=== PATIENT | female | born 1945 | race Caucasian/White ===

== ENCOUNTER 2019-09-01 20:57 | Inpatient (IN) | payer MEDICARE ==
[~2019-09-01] VITALS: Ht 152.4 cm; Wt 122.7 kg
--- NOTE | 2019-09-01 22:37 | NUR ---
PT RECIVED FROM VIA AMBULANCE STRETCHER. CALL LIGHT WITH IN REACH. WILL CONTINUE TO MONITOR
[2019-09-01 23:48] VITALS: BP 129/80
[2019-09-02] VITALS (14 sets, daily range): BP systolic 84–156; BP diastolic 50–86; BMI 61.6; BMI 61.5
--- NOTE | 2019-09-02 00:07 | NUR ---
PT HR ELEVATING TO 210'S. DR. CURRY NOTIFIED. PT IS DNR. CALL LIGHT WITH INR EACH
[2019-09-02] MEDS ORDERED: ROCALTROL0.25 MCG PO ×2 (00:30→01:30)
[2019-09-02] MEDS ORDERED: ELIQUIS2.5 MG PO (00:30)
[2019-09-02] MEDS ORDERED: GABAPENTIN100 MG PO (00:32)
[2019-09-02] MEDS ORDERED: K-DUR20 MEQ PO (00:33)
[2019-09-02] MEDS ORDERED: BUMEX2 MG PO (00:35)
[2019-09-02] MEDS ORDERED: WELLBUTRIN SR150 MG PO (00:35)
[2019-09-02] MEDS ORDERED: NUEDEXTA 20-101 EACH (00:43)
[2019-09-02] MEDS ORDERED: BAYER CHEWABLE81 MG PO (01:12)
[2019-09-02] MEDS ORDERED: FOLIC ACID0.8 MG PO (01:13)
[2019-09-02] MEDS ORDERED: FOLATE0.4 MG PO (01:13)
[2019-09-02] MEDS ORDERED: VIC-FORTE CAPSUL1 MG PO (01:15)
[2019-09-02] MEDS ORDERED: HYDROCODON-ACE1 EAC7 PO (01:15)
[2019-09-02] MEDS ORDERED: SENNA LAXATIVE8.6 MG PO (01:19)
[2019-09-02] MEDS ORDERED: VITAMIN B-12500 MCG PO (01:20)
[2019-09-02] MEDS ORDERED: VITAMIN D1000 UNI1 PO (01:20)
[2019-09-02] MEDS ORDERED: NUEDEXTA 20-101 EACH PO (01:25)
[2019-09-02] MEDS ORDERED: TRAZODONE HCL150 MG PO (01:29)
--- NOTE | 2019-09-02 01:41 | NUR ---
FRANCIE SOLIS APN, NOTIFIED OF CONSULT. ALSO, NOTIFIED THAT PATIENT HR > 200 AT TIMES. ORDERS GIVEN FOR CARDIAC CONSULT.
--- NOTE | 2019-09-02 02:26 | NUR ---
DR. SERRANO INVESTMENT ANALYST NOTIFIED OF PT ELEVATING HEART RATE. NEW ORDER FOR CARDIZEM DRIP 5MG/HR ORDERED. STARTING IV INFUSION. CALL LIGHT WITH IN REACH. WILL CONTINUE TO MONITOR
--- NOTE | 2019-09-02 05:40 | NUR ---
ATTEMPTED TO CALL FAMILY FOR VERBAL CONSENTS. NO ANSWER LEFT MESSAGE FOR FAMILY TO CALL BACK.
--- NOTE | 2019-09-02 06:27 | NUR ---
BATH DONE. PT EYES ARE FIXED. DOES RESPONED TO PAIN BY GRUNTING. PT IS UNABLE TO ANSWER ANY QUESTIONS. PT REPOSITIONED FOR COMFORT. CALL LIGHT WITH IN REACH. WILL CONTINUE TO MONITOR
[2019-09-02 08:04] LABS: BASOPHILS 0.3 % (0-2); EOSINOPHILS 1.5 % (0-7); HEMATOCRIT 31.2 % (36.0-48.0); HEMOGLOBIN 9.4 g/dL (12-16); IMMATURE GRANULOCYTES 0.3 % (0-5); LYMPHOCYTES 12.5 % (15-50); MCH 27.1 pg (26.0-34.0); MCHC 30.1 g/dL (31.0-37.0); MCV 89.9 fL (80.0-100.0); MEAN PLATELET VOLUME 12.1 fL (7.4-10.4); MONOCYTES 6.1 % (2-11); NEUTROPHILS 79.3 % (40-80); PLATELET COUNT 125 10x3/uL (130-400); RBC 3.47 10x6/uL (4.00-5.40); RDW 16.9 % (11.5-14.5)
[2019-09-02 08:10] LABS: APTT 42.6 SECONDS (22.8-39.4); INR 1.82 (0.85-1.17); PROTIME 20.8 SECONDS (11.6-15.0)
[2019-09-02 08:27] LABS: CALCIUM 8.5 mg/dL (8.5-10.1); CARBON DIOXIDE 22.3 mmol/L (21.0-32.0); CHLORIDE - SERUM 107 mmol/L (98-107); CKMB 7.1 U/L (0.0-3.6); CREATINE KINASE 272 UL (21-215); CREATININE - SERUM 5.5 mg/dL (0.6-1.3); GLUCOSE 75 mg/dL (74-106); MAGNESIUM - SERUM 2.8 mg/dL (1.8-2.4); PHOSPHOROUS 7.4 mg/dL (2.5-4.9); POTASSIUM - SERUM 5.3 mmol/L (3.5-5.1); SODIUM 141 mmol/L (136-145); eGFR NON AFRICAN AMERICAN 8 mL/min (90-120)
[2019-09-02 08:30] LABS: CALC OSMOLALITY 318 mosm/kg (275-300)
[2019-09-02 08:33] LABS: UREA NITROGEN 122 mg/dL (7-18)
--- NOTE | 2019-09-02 08:47 | NUR ---
SPOKE WITH MAGUI MEADOWS AND STATED TO HER PT'S TROPONIN IS 1.13. CALLED DR. CURRY'S OFFICE AND CELLPHONE AND COULD NOT GET THROUGH. SENT A TEXT TO DR. CURRY.
--- NOTE | 2019-09-02 09:35 | NUR ---
VS STBALE. PT'S EYES GLAZED AND WILL NOT LOOK AT NURSE. WHEN PLACING BP CUFF ON PT'S ARM SHE ARVIND ASKED PT IF SHE IS HURTING AND ARVIND "YES". ASKED PT WHERE AND SHE MUMBLED A WORD BUT WAS UNABLE TO UNDERSTAND WHAT SHE SAID AFTER ASKING HER TO REPEAT SEVERAL TIMES. [facility] ICU NURSE SOCK MENDER WANTED THIS NURSE TO CALL WITH VS AND THIS NURSE DID. SHE IS TO LOOK AT PUTTING PT IN THE UNIT. MAGUI MEADOWS IN ROOM AT THIS TIME AND STATES SHE IS FAN TO ORDER DIGOXIN. I VERBALIZED UNDERSTANDING. PT HAS ONLY 20CC IN RAMIREZ BAG. WILL TRY TO COLLECT BLOOD CULTURES AND UA. BED LOW. CL IN REACH. WILL CONTINUE TO MONITOR. PT TO GO TO SX TODAY. AWAITING COVID RESULTS.
--- NOTE | 2019-09-02 09:47 | NUR ---
CARDIZEM DRIP CHANGED TO 10ML/HR.
--- NOTE | 2019-09-02 10:24 | NUR ---
OVER THE PHONE CONSENTS FROM ALTAF LEE PT'S SISTER IN LAW WHO IS LISTED EMERGENCY CONTACT. JESSICA MONTOYA VERIFIED OVER THE PHONE ALONG WITH THIS NURSE.
--- NOTE | 2019-09-02 10:26 | NUR ---
TEXTED DR. CURRY THAT DNR FORM NEEDS SIGNED.
[2019-09-02 10:54] LABS: T4 THYROXIN - FREE 0.72 ng/dL (0.76-1.46); THYROID STIMULATING HORMONE 20.46 uIU/mL (0.36-3.74)
--- NOTE | 2019-09-02 11:51 | NUR ---
CALLED REPORT TO DAR MONTOYA IN ICU. PT TO GO TO ROOM 2313.
[2019-09-02 12:09] LABS: BACTERIA MANY /hpf (NEGATIVE); BILIRUBIN NEGATIVE (NEGATIVE); GLUCOSE NEGATIVE (NEGATIVE); KETONE NEGATIVE (NEGATIVE); NITRITE POSITIVE (NEGATIVE); RED CELLS - URINE >50 /hpf (0-5); SPECIFIC GRAVITY 1.005 (1.005-1.020); UROBILINOGEN NORMAL (NORMAL); WHITE CELLS - URINE >50 /hpf (NEGATIVE)
[2019-09-02 12:10] LABS: AMORPHOUS SEDIMENT <1+ /lpf (NONE SEEN)
--- NOTE | 2019-09-02 12:29 | NUR ---
PT TAKEN TO ICU VIA BED TO ROOM 2313.
--- NOTE | 2019-09-02 12:30 | NUR ---
TO ROOM 2313. PT AWAKE BUT DOES NOT ANSWER QUESTIONS OR FOLLOW COMMANDS. WILL CONTINUE TO MONITOR.
--- NOTE | 2019-09-02 13:28 | NUR ---
Spoke with [facility] concerning COVID19 test results pending. As of 1329 not resulted. Also spoke with Infection Control Nurse at [facility] who advised they will forward/call with results as soon as they are received. Advised Piter [place] in OR.
--- NOTE | 2019-09-02 14:00 | NUR ---
TO OR VIA BED.
--- NOTE | 2019-09-02 16:00 | NUR ---
CONSULT CALLED TO SALTY AT DR HERBERT OFFICE.
--- NOTE | 2019-09-02 16:00 | NUR ---
PLACED ON BIPAP AT 60 PERCENT. O2 SAT 90 PERCENT.
--- NOTE | 2019-09-02 19:37 | NUR ---
CARDIZEM OFF HR 55.
[2019-09-03] VITALS (24 sets, daily range): BP systolic 117–169; BP diastolic 65–95
[2019-09-03 06:51] LABS: BASOPHILS 0.1 % (0-2); EOSINOPHILS 0.1 % (0-7); HEMATOCRIT 33.8 % (36.0-48.0); HEMOGLOBIN 10.3 g/dL (12-16); IMMATURE GRANULOCYTES 0.7 % (0-5); LYMPHOCYTES 9.3 % (15-50); MCH 27.5 pg (26.0-34.0); MCHC 30.5 g/dL (31.0-37.0); MCV 90.4 fL (80.0-100.0); MEAN PLATELET VOLUME 12.7 fL (7.4-10.4); NEUTROPHILS 82.8 % (40-80); PLATELET COUNT 137 10x3/uL (130-400); RBC 3.74 10x6/uL (4.00-5.40); WBC 10.3 10x3/uL (4.8-10.8)
--- NOTE | 2019-09-03 08:41 | OP ---
PATIENT NAME: ABE HESS MEDICAL RECORD: [id number] :45 LOCATION:[facility] D.2313 ADMISSION DATE:09/01/19 SURGEON: THADDEUS CURRY MD DATE OF OPERATION: 09/02/2019 SURGEON: Thaddeus Curry MD ANESTHESIA: General anesthesia by Peyton Mitchell CRNA. DIAGNOSIS: Solitary left kidney with hydroureteronephrosis due to an 11-mm distal ureteral stone causing acute renal failure. PROCEDURES: Cystoscopy, left retrograde pyelogram, left ureteroscopy and stone extraction, left ureteral stent insertion 6-Sri Lankan x 24 cm with string attached SPECIMEN: Left ureteral stone. FINDINGS: There is urethral mesh graft erosion. The mesh was in the lumen and calcified. This is from a previous pubovaginal sling. In the bladder, there were single ureteral orifices bilaterally. No bladder tumors were seen. The stone is radiodense. SPECIMENS: Left ureteral stone. BLOOD LOSS: None. CLINICAL HISTORY: This is a 74-year-old female, who has a complicated medical history including multiple strokes. She is aphasic. She is unable to give any history. She also has a history of cardiac issues and issues with congestive heart failure and atrial fibrillation. She was sent from [facility] on an emergent basis. She has a solitary left kidney and she had acute renal failure due to a stone obstructing the left kidney. The stone was [address] She was transferred here on an emergent basis yesterday and today we are going to try to place a stent in. I obtained a KUB to try to determine the location of the stone, but it is not clear on the KUB where the stone may be located. She is already on IV antibiotics that she was transferred with and I did not give any further antibiotics. She had been tested in the Emergency Room at [facility] for Covid 19. However, the results of that testing are not yet available. This was after calling the state testing facility. Therefore, we are observing Covid precautions on this patient. DESCRIPTION OF PROCEDURE: The patient was given induction of general anesthesia in supine position. She was placed in the lithotomy position and prepped and draped. She had to have her Gallardo catheter removed. Then, her perineum was prepped and draped. A 21-Sri Lankan cystoscope was used. The scope had difficulty entering into the urethra. Finally, I managed to observe that I was actually hitting a pubovaginal sling that had eroded through the urethral wall and was in the lumen of the urethra. It had been sitting in the lumen for so long that it was calcified. Going into the bladder, lot of debris was found. I irrigated this out. The bladder low are inflamed due to the indwelling Gallardo catheter. Her urinalysis preoperatively also showed signs of urinary tract infection incidentally. No bladder tumors were seen. The left ureteral orifice was identified. A 5-Sri Lankan open-ended ureteral catheter was placed into the orifice and a retrograde pyelogram was performed. The stone was seen as a radio lucency around which the contrast migrated. It was in the distal ureter very close to OPERATIVE REPORT [id number] ABE HESS the ureteral orifice. Therefore, instead of just placing a stent, I decided to try to retrieve the stone and be rid of it. The Sensor wire was placed, past the stone up into the renal pelvis. The ureteral catheter was removed, leaving the wire in place. A 21-Sri Lankan ureteral dilation balloon was then used to dilate the left ureteral orifice. We then switched to the ureteroscope. The stone was identified. A 1.9-Sri Lankan 0-tip basket was placed around the stone and the stone was removed. We then switched the wire back into the cystoscope. A 6-Sri Lankan x 24 cm ureteral stent was placed, and once the stent was in correct position, the wire was withdrawn entirely. The distal end of stent was pushed into the bladder using a pusher. The bladder was then emptied through the cystoscope sheath. The scope was removed. The string on the distal end of the stent is maintained. It was taped to the suprapubic region with a small piece of Tegaderm. A new 16-Sri Lankan Gallardo catheter was inserted. At some future date, we will have to deal with the eroded mesh graft as it will be a source of ongoing infection. TRANSINT:[id number] Voice Confirmation ID: [id number] DOCUMENT ID: [id number] THADDEUS CURRY MD at 0841 CC: [id number] DICTATION DATE: 09/02/19 1534 RESEARCH CLERK: 09/02/19 4958 ADM IN [place] [id number] [place] [address]
[2019-09-03 09:25] LABS: ALBUMIN 2.5 g/dL (3.4-5.0); ANION GAP 23.5 mmol/L (8-16); BILIRUBIN - TOTAL 0.69 mg/dL (0.2-1.3); CALCIUM 7.8 mg/dL (8.5-10.1); CARBON DIOXIDE 18.5 mmol/L (21.0-32.0); CREATININE - SERUM 5.7 mg/dL (0.6-1.3); PHOSPHOROUS 7.1 mg/dL (2.5-4.9); PROTEIN - SERUM 6.1 g/dL (6.4-8.2)
[2019-09-03 09:32] LABS: DIGOXIN 3.08 ng/mL (0.90-2.00)
[2019-09-03 13:09] LABS: INR 1.4 (0.85-1.17)
--- NOTE | 2019-09-03 13:40 | NUR ---
Nutrition follow-up: Pt remains nonverbal at this time NPO for procedure Wt: 314# BIPAP in use RDN following.
--- NOTE | 2019-09-03 16:44 | NUR ---
CONTINUE TO BE IN AFIB HR 102. CARDIZEM AT 10 MG PER HOUR.
[2019-09-04] VITALS (31 sets, daily range): BP systolic 111–163; BP diastolic 56–85
--- NOTE | 2019-09-04 07:40 | NUR ---
LYING IN BED AWAKE AT THIS TIME. VSS. NO ACUTE DISTRESS NOTED. PT ABLE TO STATE NEEDS SUCH "I WANT A DRINK OF WATER," EXPLAINED TO PT THAT SHE WAS NPO AND COULD NOT HAVE A DRINK OF WATER AT THIS TIME, PT STATED "OKAY." PT NOTED CONFUSED, ABLE TO ONLY STATE NAME. REORIENTATION PROVIDED. TURNED Q2H, ORAL CARE PROVIDED Q2H. VSS. SINUS RHYTHM. WILL CONTINUE PLAN OF CARE.
--- NOTE | 2019-09-04 07:54 | NUR ---
ATTEMPTED TO CALL PTS EMERGENCY CONTACT, ROSA SOLITARIO, FOR CONSENT FOR LITHOTRIPSY TODAY, NO ANSWER RECIEVED, VOICEMAIL LEFT. WAITING FOR CALLBACK.
--- NOTE | 2019-09-04 09:04 | NUR ---
NO CALLBACK RECIEVED, CALLED EMERGENCY CONTACT AGAIN, NO ANSWER NOTED. WAITING FOR CALLBACK.
[2019-09-04 09:13] LABS: BASOPHILS 0.4 % (0-2); EOSINOPHILS 0 % (0-7); HEMATOCRIT 33.4 % (36.0-48.0); HEMOGLOBIN 10.5 g/dL (12-16); IMMATURE GRANULOCYTES 4.7 % (0-5); LYMPHOCYTES 9.6 % (15-50); MCH 27.2 pg (26.0-34.0); MCHC 31.4 g/dL (31.0-37.0); MEAN PLATELET VOLUME 11.7 fL (7.4-10.4); MONOCYTES 6.4 % (2-11); NEUTROPHILS 78.9 % (40-80); RBC 3.86 10x6/uL (4.00-5.40); RDW 16.3 % (11.5-14.5); WBC 11.8 10x3/uL (4.8-10.8)
[2019-09-04 09:14] LABS: MCV 86.5 fL (80.0-100.0); PLATELET COUNT 165 10x3/uL (130-400)
[2019-09-04 09:24] LABS: CALCIUM 8.5 mg/dL (8.5-10.1); CREATININE - SERUM 5.1 mg/dL (0.6-1.3); MAGNESIUM - SERUM 2.7 mg/dL (1.8-2.4)
[2019-09-04 09:27] LABS: PHOSPHOROUS 4.4 mg/dL (2.5-4.9)
[2019-09-04 09:29] LABS: ANION GAP 16.1 mmol/L (8-16); CARBON DIOXIDE 27.1 mmol/L (21.0-32.0); POTASSIUM - SERUM 4.2 mmol/L (3.5-5.1)
--- NOTE | 2019-09-04 10:39 | NUR ---
LYING IN BED AWAKE AT THIS TIME. VSS. NO ACUTE DISTRESS NOTED. PT TURNED Q2H, ORAL CARE PROVIDED Q2H. WILL CONTINUE PLAN OF CARE.
--- NOTE | 2019-09-04 11:59 | NUR ---
PER DR CURRY, CHANGE OUT RAMIREZ.
--- NOTE | 2019-09-04 12:46 | NUR ---
PT PLACED ON NC PER DR MENG ORDERS. OXYGEN SATURATION 99% ON 5L NC.
--- NOTE | 2019-09-04 14:02 | NUR ---
RAMIREZ REPLACED PER DR CURRY'S ORDERS. 16F WAS PLACED WHICH IS THE SAME SIZE RAMIREZ WHICH WAS JUST REMOVED. SALTY COLORED URINE FLOWING INTO CLOSED CONTAINER. PLACEMENT PERFORMED USING STERILE PROCEDURE. VSS. NO ACUTE DISTRESS NOTED. PT DENIES ANY NEEDS. WILL CONTINUE PLAN OF CARE.
--- NOTE | 2019-09-04 14:26 | NUR ---
PER SPEECH SWALLOW EVAL, KEEP PT NPO.
--- NOTE | 2019-09-04 15:48 | NUR ---
UP IN BED AWAKE AT THIS TIME. DENIES ANY NEEDS. VSS. CALL LIGHT IN REACH. BED ALARM ON. PT ABLE TO STATE NEEDS, ORAL CARE AND REPOSITIONING PROVIDED Q2H. WILL CONTINUE PLAN OF CARE.
--- NOTE | 2019-09-04 16:19 | NUR ---
TOTAL LINEN CHANGE PROVIDED AT THIS TO PLACE SLIDE PAD BENEATH PT. NO ACUTE DISTRESS NOTED. DR MENG NOTIFIED OF PTS SBP UP TO 150S, NO NEW ORDERS RECIEVED. PT TURNED Q2H, ORAL CARE PROVIDED Q2H. WILL CONTINUE PLAN OF CARE.
--- NOTE | 2019-09-04 18:34 | NUR ---
NO ACUTE DISTRESS NOTED AT THIS TIME. VSS. NO ACUTE DISTRESS NOTED. REPOSITIOING AND ORAL CARE PROVIDED Q2H. CALL LIGHT IN REACH. WILL CONTINUE PLAN OF CARE.
--- NOTE | 2019-09-04 19:00 | NUR ---
REPORT REC'D, ASSUMED PT CARE. ASSESSMEMT COMPLETED. PT AWAKE SCREAMING AND CRYING FOR WATER, PT ON STRICT NPO AT THIS TIME. UNABLE TO PASS SWALLOW EVAL TO DAY. REORIENTED WITHOUT SUCCESS, MOUTH CARE PROVIDED, LIPS BALM USED. PT STATED THAT FEELS BETTER. CONT AFIB ON MONITOR. PPP. CALL LIGHT IN REACH. CONT TO MONITOR.
--- NOTE | 2019-09-04 21:00 | NUR ---
PT REPOSITIONED FOR COMFORT. HOB UP, SIDE RAILS UP. CALL LIGHT IN REACH. NO FAMILY CALLED AT THIS TIME. CONT TO MONITOR.
--- NOTE | 2019-09-04 23:00 | NUR ---
REASSESSMENT COMPLETED. SEE FLOWSHEETS FOR ALL FINDINGS. PT AWAKE EASILY WITH VOICES. VSS. NO ACUTE CHANGES NOTED IN PT'S STATUS. REPOSITIONED FOR COMFORT. WEAGES IN USE FOR SUPPORT. HEELS ELEVATED. HOB UP. SIDE RAILS UP. CALL LIGHT IN REACH. CPOC.
[2019-09-05] VITALS (21 sets, daily range): BP systolic 142–169; BP diastolic 56–77
--- NOTE | 2019-09-05 01:00 | NUR ---
PT RESTING WITHOUT DISTRESS AT THIS TIME. VSS. NO NEEDS VOICES. CPOC.
--- NOTE | 2019-09-05 03:00 | NUR ---
REASSESSMENT COMPLETED PER FLOWSHEETS. PT AROUSES WITH VOICES, NO ACUTE CHANGES IN PTS STATUS NOTED. VSS. CPOC.
--- NOTE | 2019-09-05 05:00 | NUR ---
PT REPOSITIONED FOR COMFORT. MOUTH CARE DONE. PILLOWS IN USE FOR SUPPORT. HOB UP. RIGHT CALF DRESSING CHANGED. CPOC.
[2019-09-05 06:39] LABS: HEMATOCRIT 33.5 % (36.0-48.0); HEMOGLOBIN 10.3 g/dL (12-16); MCH 26.8 pg (26.0-34.0); MCHC 30.7 g/dL (31.0-37.0); MEAN PLATELET VOLUME 12.5 fL (7.4-10.4); PLATELET COUNT 140 10x3/uL (130-400); RBC 3.85 10x6/uL (4.00-5.40); RDW 16.6 % (11.5-14.5); WBC 11.2 10x3/uL (4.8-10.8)
[2019-09-05 06:44] LABS: ALBUMIN 2.5 g/dL (3.4-5.0); BILIRUBIN - TOTAL 0.53 mg/dL (0.2-1.3); CALCIUM 7.9 mg/dL (8.5-10.1); CARBON DIOXIDE 27.1 mmol/L (21.0-32.0); CREATININE - SERUM 4.2 mg/dL (0.6-1.3); MAGNESIUM - SERUM 2.6 mg/dL (1.8-2.4)
[2019-09-05 06:48] LABS: POTASSIUM - SERUM 5.1 mmol/L (3.5-5.1)
--- NOTE | 2019-09-05 07:29 | NUR ---
REPORT RECEIVED. ASSESSMENT COMPLETE PER FLOW SHEET. VSS. PT RESTING COMFORTABLY WILL CONTINUE TO MONITOR
--- NOTE | 2019-09-05 10:44 | NUR ---
Nutrition follow-up: Pt remains NPO Labs reviewed Recommend NGT placement and Suplena started @ 25 ml/hr with increase goal rate of 50 ml/hr. Flush tube with 75 ml H2O q [address] following.
[2019-09-05 11:26] LABS: LYMPHOCYTES 15 % (15-50); MONOCYTES 11 % (2-11); NEUTROPHILS 74 % (40-80); PLATELET ESTIMATE NORMAL
--- NOTE | 2019-09-05 13:27 | NUR ---
Right lower leg is red/excoriated. Bilateral lower legs edematous and discolored. Right heel and left heel have deep tissue injuries. Heels are being protected with heel protectors and floating. Wound care will monitor.
--- NOTE | 2019-09-05 15:00 | NUR ---
REASSESSMENT COMPLETE PER FLOW SHEET. VSS. PT RESTING COMFORTABLY WILL CONTINUE TO MONITOR
--- NOTE | 2019-09-05 15:15 | NUR ---
REASSESSMENT COMPLETE PER FLOW SHEET. VSS. PT RESTING COMFORTABLY WILL CONTINUE TO MONITOR
--- NOTE | 2019-09-05 19:00 | NUR ---
REPORT REC'D, ASSESSMENT COMPLETED. GARBLED SPEECH. UNABLE TO ANSWER QUESTIONS CORRECTLY. WEAK STRENGTH, LEFT SIDE > RIGHT SIDE. REPOSITIONED. F/C WITH SALTY OUTPUT.
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
--- NOTE | 2019-09-05 21:46 | MORECARE ---
CASE MANAGEMENT DISCHARGE SUMMARY PATIENT: ABE HESS UNIT: [id number] ADM DATE: 09/01/19 AGE: 74 : 45 SEX: F ROOM/BED: D.2308 AUTHOR: CYNTHIA,DOC PHYSICIAN: REFERRING PHYSICIAN: MARIA ELENA CURRY MD DATE OF SERVICE: 09/05/19 Discharge Plan Patient Name: ABE HESS Facility: [facility]:[place] : 1945 Planned Disposition: Nursing Facility [facility] Cert Anticipated Discharge Date: Discharge Date: Expected LOS: Initial Reviewer: [email or web address] Initial Review Date: 09/02/2019 Generated: 09/05/19 10:46 pm Comments DCP- Discharge Planning Updated by [email or web address]: Xiao Castro on 09/05/19 8:[address] Patient Name: ABE HESS Admission Status: Elective Accout number: [id number] Admission Date: 09-01-2019 : 1945 Admission Diagnosis:CALCULUS OF URETER Attending: RANDY CURRY Current LOS: 4 Anticipated DC Date: Planned Disposition: Nursing Facility [facility] Cert Primary Insurance: MEDICARE IP PART B ONLY Discharge Planning Comments: PATIENT IS A RESIDENT AT [facility] [phone]. [facility] COMPLETED PLANS TO RETURN THERE UPON DISCHARGE. CM FAXED UPDATE TO FACILITY. CM WILL CONTINUE TO FOLLOW AND ASSIST NEEDED WITH DISCHARGE PLANNING / NEEDS. Rehab Director Occupational Therapist: Xiao Castro DCPIA - Discharge Planning Initial Assessment Updated by [email or web address]: Xiao Castro on 09/05/19 9:38 pm * Is the patient Alert and Oriented? Yes * PCP [facility] * Pharmacy [facility] * Preadmission Environment [facility] * Facility Name [facility] * List name and contact numbers for known caregivers / representatives who currently or will assist patient after discharge: ROSA SOLITARIO - [phone] MOISÉS LOVE - [phone] * Verbal permission to speak to the caregivers and representatives has been obtained from the patient. Yes * Community resources currently utilized None * Additional services required to return to the preadmission environment? No * Can the patient safely return to the preadmission environment? Yes * Has this patient been hospitalized within the prior 30 days at any hospital? No Last DP export: 09/05/19 8:39 pm Patient Name: ABE HESS Page 00659 at 2146 All edits/amendments must be made on the electronic document DICTATION DATE: 09/05/192145 PERSONAL FITNESS TRAINER: LEONARDO 09/05/192145 RPT#: [id number] DC DATE: STATUS: ADM IN [facility] [address] [place] [address] END OF REPORT
--- NOTE | 2019-09-05 23:00 | NUR ---
RE-ASSESSMENT COMPLETED. NO CHANGES SINCE LAST ASSESSMENT
[2019-09-06] VITALS (23 sets, daily range): BP systolic 143–177; BP diastolic 56–78
--- NOTE | 2019-09-06 01:00 | NUR ---
REPOSITIONED. VSS. DENIES ANY NEEDS
--- NOTE | 2019-09-06 03:00 | NUR ---
RE-ASSESSMENT COMPLETED. NO CHANGES SINCE LAST ASSESSMENT. REPOSITIONED
--- NOTE | 2019-09-06 05:02 | NUR ---
CHG BATH GIVEN WITH COMPLETE LINEN CHANGE
--- NOTE | 2019-09-06 07:00 | NUR ---
AWAKE UNABLE TO UNDERSTAND SPEECH EXCEPT YES. OCC CAN UNDERSTAND A WORD OR TWO. SKIN WARM AND DRY. MONITOR SR. OXYGEN AT 4 LITERS NC. IV RIGHT UPPER ARM INFUSING WITH CARDIZEM 5 MG HOUR, D51/2NS AT 100 ML HOUR. RAMIREZ CATH PATENT. HEAD OF BED ELEVATED. BADGES ON LOWER LEGS DRY AND INTACT. LEGS VERY LARGE.
[2019-09-06 07:42] LABS: ANION GAP 15.2 mmol/L (8-16); CALCIUM 8.2 mg/dL (8.5-10.1); CARBON DIOXIDE 24.7 mmol/L (21.0-32.0); CREATININE - SERUM 3.4 mg/dL (0.6-1.3); MAGNESIUM - SERUM 2.4 mg/dL (1.8-2.4); PHOSPHOROUS 3.4 mg/dL (2.5-4.9)
--- NOTE | 2019-09-06 08:00 | NUR ---
FEED PUREED DIET. ATE WELL. ALL OF HER EGGS, HALF OF CREAM OF WHEAT. CHOKED ON COFFEE. HEAD OF BED ELEVATED 90 DEGREES. GOOD COUGH EFFORT
[2019-09-06 08:05] LABS: POTASSIUM - SERUM 3.9 mmol/L (3.5-5.1)
--- NOTE | 2019-09-06 10:00 | NUR ---
NO CHANGE IV PATENT.
--- NOTE | 2019-09-06 11:00 | NUR ---
3/4 CUP OF SHERBERT FEED TO PATIENT
--- NOTE | 2019-09-06 12:00 | NUR ---
PUREED DIET FEED TO PATIENT EAT 1/3 OF FOOD THEN STARTED COUGHING.
--- NOTE | 2019-09-06 13:00 | NUR ---
voss care done. no skin breakdown on coccyx. both heels purple. heel protectors in place. both heels bridged on pillows x 2. good cough tolerates repositioning poorly, screams when repositioned
[2019-09-06 13:33] LABS: HEMATOCRIT 34.9 % (36.0-48.0); HEMOGLOBIN 10.6 g/dL (12-16); LYMPHOCYTES 10.6 % (15-50); MCH 27.4 pg (26.0-34.0); MCHC 30.4 g/dL (31.0-37.0); MEAN PLATELET VOLUME 11.9 fL (7.4-10.4); NEUTROPHILS 82.4 % (40-80); PLATELET COUNT 158 10x3/uL (130-400); RBC 3.87 10x6/uL (4.00-5.40); RDW 16.5 % (11.5-14.5); WBC 11.8 10x3/uL (4.8-10.8)
--- NOTE | 2019-09-06 13:44 | NUR ---
HALF APPLE SAUCE TAKEN WITH MEDICATIONS. WASH CLOTHES PLACED IN CONTRACTED HANDS.
[2019-09-06 13:48] LABS: MCV 90.2 fL (80.0-100.0)
--- NOTE | 2019-09-06 15:00 | NUR ---
no changes. taking po fluids well. has to feed all fluids and drinks
--- NOTE | 2019-09-06 17:00 | NUR ---
feed pureed super tray. ate all of meat, and pudding. drinking water and soda. tolerated well no choking or coughing
--- NOTE | 2019-09-06 18:00 | NUR ---
back on bipap for short of breath per patient pulse ox 98%. phone in room called want to talk with him.
--- NOTE | 2019-09-06 18:00 | NUR ---
napping at intervals. no distress
--- NOTE | 2019-09-06 19:00 | NUR ---
ASSESSMENT COMPLETED. REPOSITIONED. GARBLED SPEECH, CLEAR AT TIMES. BREATHING ROOM AIR.
--- NOTE | 2019-09-06 21:00 | NUR ---
REPOSITIONED AND ORAL CARE PROVIDED.
--- NOTE | 2019-09-06 23:00 | NUR ---
RE-ASSESSMENT COMPLETED. NO CHANGES SINCE LAST ASSESSMENT
[2019-09-07] VITALS (24 sets, daily range): BP systolic 147–176; BP diastolic 46–85
--- NOTE | 2019-09-07 01:00 | NUR ---
REPOSITIONED AND ORAL CARE PROVIDED. VSS
--- NOTE | 2019-09-07 03:00 | NUR ---
REPOSITIONED. RE-ASSESSMENT COMPLETED. NO CHANGES SINCE LAST ASSESSMENT
--- NOTE | 2019-09-07 05:00 | NUR ---
REPOSITIONED AND ORAL CARE PROVIDED
--- NOTE | 2019-09-07 07:15 | NUR ---
AWAKE SPEECH GARBLED UNABLE TO UNDERSTAND PATIENT. MAKING EYE CONTACT AND TRYING TO TALK. SKIN WARM AND DRY. MONITOR SR. IV RIGHT UPPER ARM WITHOUT REDNESS OR SWELLING. INFUISNG WITH D51/2NS AT 100 ML HOUR. CARDIZEM GTT AT 5 MG. RAMIREZ CATH PATENT AND DRAINING CLEAR SALTY URINE. BOTH HEELS BRIDGED ON PILLOWS AND HEEL PROTECTORS IN PLACE. HEAD OF BED ELEVATED . REPOSITIONED FOR BREAKFAST. DRESSING ON RIGHT LEG DRY AND INTACT. CALL LIGHT WITHIN HANDS REACH. NO MOVEMENT RIGHT SIDE. MOVES LEFT ON REQUEST. LEFT HAND SQUEEZ STRONG
--- NOTE | 2019-09-07 08:00 | NUR ---
FEED BREAKFAST ATE 1/3 THEN STARTED COUGHING AND CHOKING ON THICKEN LIQUIDS
[2019-09-07 08:48] LABS: HEMATOCRIT 35.8 % (36.0-48.0); HEMOGLOBIN 10.7 g/dL (12-16); MCH 27.3 pg (26.0-34.0); MCHC 29.9 g/dL (31.0-37.0); MCV 91.3 fL (80.0-100.0); MEAN PLATELET VOLUME 12.4 fL (7.4-10.4); NEUTROPHILS 81.9 % (40-80); PLATELET COUNT 127 10x3/uL (130-400); RBC 3.92 10x6/uL (4.00-5.40); RDW 16.5 % (11.5-14.5); WBC 13.9 10x3/uL (4.8-10.8)
--- NOTE | 2019-09-07 08:54 | NUR ---
DRESSING RIGHT LEG REMOVED LARGE OPEN WOUND CLEAN WITH WOUND CLEANSER WET TO DRY DRESSING APPLIED. SOME YELLOW NOTED IN WOUND. ABD PAD APPLIED WRAPPED IN KERLIX PATIENT TOLERATED FAIR. HEELS STILL PURPLE LEFT MORE THAN RIGHT. HEEL PROTECTORS IN PLACE HEELS BRIDGED WITH PILLOWS X 2
[2019-09-07 09:10] LABS: ANION GAP 15.9 mmol/L (8-16); CALCIUM 7.6 mg/dL (8.5-10.1); POTASSIUM - SERUM 3.9 mmol/L (3.5-5.1)
--- NOTE | 2019-09-07 10:00 | NUR ---
NAPPING EYES CLOSED. RESP DEEP AND REGULAR NO DISTRESS.
--- NOTE | 2019-09-07 11:00 | NUR ---
REPOSITIONED ON BACK FOR LUNCH
--- NOTE | 2019-09-07 12:16 | NUR ---
feed lunch ate 50% did not want anymore. some coughing and choking at times. good cough reflex
--- NOTE | 2019-09-07 12:17 | NUR ---
crying out wants to go to bed. informed several times that she is in bed. dr. sharp here
--- NOTE | 2019-09-07 13:52 | NUR ---
repositioned sipping on honey consistent coka cola. napping at intervals no distress. bilateral heels bridge on pillows heel protectors in place. dressing on right lower leg dry and intact
--- NOTE | 2019-09-07 15:00 | NUR ---
repositioned. heels bridged on pillows. dressing dry and intact. monitor sr. drinking honey consistences cola.
--- NOTE | 2019-09-07 17:00 | NUR ---
repositioned. feed dinner pureed diet ate fair. minimal coughing. taking sips of thicken water.
--- NOTE | 2019-09-07 19:00 | NUR ---
REPORT RECEIVED AND CARE ASSUMED. RECEIVED PATIENT IN BED, SLEEPING. ROUSES EASILY. ORIENTED TO SELF ONLY. ASSESSMENT COMPLETED PER FLOW SHEET WITH NO ACUTE DISTRESS OBSERVED. MONITORS CONNECTED TO PATIENT WITH ALARMS SET. VSS. TURNED AND REPOSTIONED FOR COMFORT.
--- NOTE | 2019-09-07 21:00 | NUR ---
TURNED AND REPOSITIONED FOR COMFORT, SUSI WELL. VSS
--- NOTE | 2019-09-07 23:00 | NUR ---
REASSESSMENT COMPLETED PER FLOW SHEET WITH NO ACUTE DISTRESS OBSERVED. VSS. TURNED AND REPOSITIONED FOR COMFORT.
[2019-09-08] VITALS (10 sets, daily range): BP systolic 132–175; BP diastolic 41–68
--- NOTE | 2019-09-08 01:00 | NUR ---
RESTING QUIETLY. RESP EVEN AND UNLABORED. VSS. TURNED AND REPOSITIONED FOR COMFORT
--- NOTE | 2019-09-08 03:00 | NUR ---
AWAKE AND ALERT. TURNED AND REPOSITIONED. REASSESSMENT COMPLETED PER FLOW SHEET WITH NO ACUTE DISTRESS OBERVED. VSS.
[2019-09-08 03:41] LABS: ANION GAP 12.4 mmol/L (8-16); CALCIUM 8.1 mg/dL (8.5-10.1); CARBON DIOXIDE 25.1 mmol/L (21.0-32.0); CREATININE - SERUM 2.7 mg/dL (0.6-1.3); POTASSIUM - SERUM 3.5 mmol/L (3.5-5.1)
[2019-09-08 03:43] LABS: HEMATOCRIT 34.3 % (36.0-48.0); HEMOGLOBIN 10.3 g/dL (12-16); LYMPHOCYTES 7.1 % (15-50); MCH 27.1 pg (26.0-34.0); MCV 90.3 fL (80.0-100.0); NEUTROPHILS 83.5 % (40-80); RDW 16.4 % (11.5-14.5); WBC 15.7 10x3/uL (4.8-10.8)
[2019-09-08 03:44] LABS: PLATELET COUNT 185 10x3/uL (130-400)
--- NOTE | 2019-09-08 05:00 | NUR ---
CHG BATH GIVEN. ORAL CARE GIVEN. TURNED AND REPOSITIONED. SUSI WELL. VSS
--- NOTE | 2019-09-08 09:17 | NUR ---
Nutrition follow-up: Diet: regular puree with honey thick liquids PO intake ~50% of most meals; nursing reports pt ate 100% of breakfast this morning. Labs reviewed Wt: 270# RDN following.
--- NOTE | 2019-09-08 11:19 | NUR ---
RECEIVED PT FROM LINDSAY ROSENTHAL IN ICU, PT IS ALERT AND ORIENTED TO SELF. PT VERY SWOLLEN IN BOTH UPPER AND LOWER EXTREMITIES, LEFT AND RIGHT ARMS ELEVATED WITH PILLOWS, WHEN TRYING TO ADJUST PILLOWS PT STATED SHE IS HURTING. IV IN RT UPPER ARM INTACT, NO SWELLING OR REDNESS SEEN AT SITE, RAMIREZ IN PLACE, TELEMETRY PLACED ON PT. NO S/SX OF DISTRESS, CL IN REACH, TURNED ON CARTOONS FOR PT. ASSUME PT CARE
--- NOTE | 2019-09-08 12:55 | NUR ---
ASSISTED PT WITH LUNCH, PT ATE 1/2 OF HER CHICKEN ABOUT 25% OF ZUCCHINI AND 3 BITES OF HER SOUP AND 3 TO 5 BITES OF DESSERT. PT DRANK HALF HER WATER THEN REQUESTED COKE, PT STATED SHE WAS FULL, NO OTHER NEEDS AT THIS TIME, HOURLY ROUNDING SHEET WELL I&O PRINTED FOR PT, CL IN REACH CONTINUE WITH PLAN OF CARE
--- NOTE | 2019-09-08 19:35 | NUR ---
LYING IN BED WATCHING TV. CONFUSED. SPEECH DIFF TO UNDERSTAND. YELLS OUT AT TIMES. HOB ELEVATED. TELEMETRY SHOWS JUNCTIONAL WITH RATE OF 62. RESP EVEN AND NONLABORED. RAMIREZ CATH PATENT AND DRAINING CLEAR YELLOW URINE. GEN EDEMA NOTED. EGGCRATE HEEL PROTECTORS IN USE BILAT. DRSG NOTED TO RLE. D5NS @ 100 ML/HR INFUSING IN RT UPPER ARM. NO DISTRESS. BED ALARM ON. CL IN REACH.
--- NOTE | 2019-09-08 23:38 | NUR ---
HASNT BEEN ASLEEP. YELLS OUT. CONFUSED. JANA ALARM ON. CL IN REACH.
[2019-09-09 00:10] VITALS: BP 116/41
--- NOTE | 2019-09-09 02:03 | NUR ---
LYING IN BED WATCHING TV. HASNT BEEN ASLEEP YET. NO DISTRESS. CL IN REACH.
[2019-09-09 04:00] VITALS: BP 121/50
--- NOTE | 2019-09-09 05:00 | NUR ---
REPOSITIONED TO LT SIDE. BUE ELEVATED ON PILLOWS. CL IN REACH. NO DISTRESS.
[2019-09-09 05:15] LABS: HEMATOCRIT 31.9 % (36.0-48.0); HEMOGLOBIN 9.8 g/dL (12-16); LYMPHOCYTES 8.5 % (15-50); MCH 27.1 pg (26.0-34.0); MCHC 30.7 g/dL (31.0-37.0); MEAN PLATELET VOLUME 12.5 fL (7.4-10.4); NEUTROPHILS 82.1 % (40-80); PLATELET COUNT 212 10x3/uL (130-400); RBC 3.62 10x6/uL (4.00-5.40); RDW 16.2 % (11.5-14.5); WBC 18.6 10x3/uL (4.8-10.8)
[2019-09-09 05:19] LABS: MCV 88.1 fL (80.0-100.0)
[2019-09-09 05:30] LABS: ANION GAP 16.7 mmol/L (8-16); CALCIUM 7.6 mg/dL (8.5-10.1); CARBON DIOXIDE 21.3 mmol/L (21.0-32.0); CREATININE - SERUM 2.9 mg/dL (0.6-1.3)
--- NOTE | 2019-09-09 07:20 | NUR ---
ALERT AND ORIENTED TO SELF. LUNGS CLEAR BILATERALLY. HEART SOUNDS S1 AND S2 HEARD IN ALL PIÑA. BOWEL SOUNDS ACTIVE X 4. GENERALIZED EDEMA. DRSG TO RLE C/D/I. WILL CHANGE TODAY. HEEL PROTECTORS IN PLACE. IV TO YESSICA PATENT WITHOUT REDNESS. BED LOW. FALL PRECAUTIONS IN PLACE. CALL ECHEVERRIA AND PERSONAL ITEMS IN REACH. WILL CONTINUE TO MONITOR.
[2019-09-09 09:03] VITALS: BP 112/41
--- NOTE | 2019-09-09 09:15 | NUR ---
DRSG CHANGE TO RLE PER ORDER.
--- NOTE | 2019-09-09 14:06 | NUR ---
RESTING IN BED. DENIES NEEDS. WILL CONTINUE TO MONITOR.
--- NOTE | 2019-09-09 14:18 | NUR ---
Heels with heel protectors in place. Bilateral heels with deep tissue injuries. Right calf with chronic ulcer. No other issues. Pt is being turned/repositioned q 2 hours. Heels with protectors and floated. Wound care continues to monitor.
[2019-09-09 16:34] LABS: GLUCOSE NEGATIVE (NEGATIVE); KETONE NEGATIVE (NEGATIVE); NITRITE NEGATIVE (NEGATIVE); SPECIFIC GRAVITY 1.015 (1.005-1.020); UROBILINOGEN NORMAL (NORMAL)
[2019-09-09 16:35] LABS: BILIRUBIN NEGATIVE (NEGATIVE)
[2019-09-09 16:36] LABS: EPITHELIAL CELLS 0-5 /hpf (0-5); RED CELLS - URINE 0-5 /hpf (0-5); WHITE CELLS - URINE >50 /hpf (NEGATIVE)
[2019-09-09 16:37] LABS: BACTERIA MODERATE /hpf (NEGATIVE)
[2019-09-09 17:39] VITALS: BP 111/44
--- NOTE | 2019-09-09 19:50 | NUR ---
LAYING IN BED. LETHARGIC. SPEECH DIFF TO UNDERSTAND. SLOW TO RESPOND. CONFUSED. ORIENTED TO SELF ONLY. RESP SHALLOW, IRREG. NONPROD COUGH. EXP WHEEZES. RAMIREZ CATH PATENT AND DRAINING CLOUDY YELLOW URINE. INCONT OF BOWELS. D5NS @ 100 MLHR INFUSING IN RT UPPER ARM. GEN EDEMA NOTED TO ENTIRE BODY. HEEL PROTECTORS IN USE BILAT. PITTING EDEMA NOTED. TELEMETRY SHOWS SR WITH 1ST DEGREE BLOCK WITH RATE OF 77. BED ALARM IN USE. SR ELEVATED X2. CL IN REACH.
[2019-09-09 21:06] VITALS: BP 129/51
[2019-09-10 00:47] VITALS: BP 126/43
--- NOTE | 2019-09-10 03:51 | NUR ---
RESTING WITH EYES CLOSED. RESP NONLABORED. NO DISTRESS. HAS BEEN UP MOST OF NIGHT AND JUST NOW SETTLING DOWN. CL IN REACH
--- NOTE | 2019-09-10 05:24 | NUR ---
ELEVATED TEMP. ATTEMPTED TO GIVE AM MEDS BUT PT NOT ABLE TO TAKE THEM.ICE PACKS MADE AND PLACED ON GROIN.
[2019-09-10 06:10] VITALS: BP 104/61
[2019-09-10 06:10] LABS: HEMATOCRIT 33.8 % (36.0-48.0); HEMOGLOBIN 9.9 g/dL (12-16); MCH 25.8 pg (26.0-34.0); MCHC 29.3 g/dL (31.0-37.0); MCV 88.3 fL (80.0-100.0); MEAN PLATELET VOLUME 13.1 fL (7.4-10.4); PLATELET COUNT 211 10x3/uL (130-400); RBC 3.83 10x6/uL (4.00-5.40); RDW 16.6 % (11.5-14.5); WBC 20.9 10x3/uL (4.8-10.8)
[2019-09-10 06:12] LABS: ANION GAP 15.9 mmol/L (8-16); CALCIUM 7.8 mg/dL (8.5-10.1); CARBON DIOXIDE 19.3 mmol/L (21.0-32.0); CREATININE - SERUM 3.1 mg/dL (0.6-1.3); POTASSIUM - SERUM 4.2 mmol/L (3.5-5.1)
[2019-09-10 08:00] VITALS: BP 122/71
[2019-09-10 12:00] VITALS: BP 150/62
[2019-09-10 13:17] LABS: EOSINOPHILS 4 % (0-7); LYMPHOCYTES 16 % (15-50); MONOCYTES 17 % (2-11); NEUTROPHILS 60 % (40-80); PLATELET ESTIMATE NORMAL
[2019-09-10 13:18] LABS: ANISOCYTOSIS OCC
--- NOTE | 2019-09-10 13:55 | MORECARE ---
CASE MANAGEMENT DISCHARGE SUMMARY PATIENT: ABE HESS UNIT: [id number] ADM DATE: 09/01/19 AGE: 74 : 45 SEX: F ROOM/BED: D.2231 AUTHOR: CYNTHIA,DOC PHYSICIAN: REFERRING PHYSICIAN: MARIA ELENA CURRY MD DATE OF SERVICE: 09/10/19 Discharge Plan Patient Name: ABE HESS Facility: [facility]:[place] : 1945 Planned Disposition: Nursing Facility [facility] Cert Anticipated Discharge Date: Discharge Date: Expected LOS: Initial Reviewer: [email or web address] Initial Review Date: 09/02/2019 Generated: 09/10/19 2:54 pm Comments DCP- Discharge Planning Updated by [email or web address]: Elena Sanchez on 09/10/19 12:[address] Patient Name: ABE HESS Admission Status: Elective Accout number: [id number] Admission Date: 09-01-2019 : 1945 Admission Diagnosis:CALCULUS OF URETER Attending: RANDY CURRY Current LOS: 9 Anticipated DC Date: Planned Disposition: Nursing Facility [facility] Cert Primary Insurance: MEDICARE IP PART B ONLY Discharge Planning Comments: THERE IS A DNR ON THE CHART FROM 2013. PROVIDER WANTS TO KNOW IF THE DNR IS STILL THE CASE, IF WE NEED TO BE AGGRESIVE WITH CARE OR DNR IS THE WISHES. I CALLED AND SPOKE TO FAMILY MEMBER ALTAF LEE WHICH IS SISTER IN LAW, TO DISCUSS DNR STATUS AND PLAN. SHE STATES I WOULD NEED TO TALK TO CITLALI MUSHTAQ UGARTE AT [phone]. I TRIED CALLING MS UGARTE AND LEFT A VOICE MAIL TO CALL ME. SISTER IN LAW STATES WOULD LIKE HER TO GO BACK TO [facility] WITH COMFORT CARE/ HOSPICE BUT MS UGARTE IS POA. CM WILL FOLLOW AND ASSIST NEEDED. Town Manager: Elena Sanchez DCP- Discharge Planning Updated by [email or web address]: Xiao Castro on 09/05/19 8:[address] Patient Name: ABE EHSS Admission Status: Elective Accout number: [id number] Admission Date: 09-01-2019 : 1945 Admission Diagnosis:CALCULUS OF URETER Attending: RANDY CURRY Current LOS: 4 Anticipated DC Date: Planned Disposition: Nursing Facility [facility] Cert Primary Insurance: MEDICARE IP PART B ONLY Discharge Planning Comments: PATIENT IS A RESIDENT AT [facility] [phone]. CEDRIC COMPLETED PLANS TO RETURN THERE UPON DISCHARGE. CM FAXED UPDATE TO FACILITY. CM WILL CONTINUE TO FOLLOW AND ASSIST NEEDED WITH DISCHARGE PLANNING / NEEDS. Town Manager: Xiao Castro DCPIA - Discharge Planning Initial Assessment Updated by [email or web address]: Xiao Castro on 09/05/19 9:38 pm * Is the patient Alert and Oriented? Yes * PCP [facility] * Pharmacy [facility] * Preadmission Environment [facility] * Facility Name [facility] * List name and contact numbers for known caregivers / representatives who currently or will assist patient after discharge: ROSA SOLITARIO - [phone] MOISÉSARIEL DELACRUZAlexandra [facility] - [phone] * Verbal permission to speak to the caregivers and representatives has been obtained from the patient. Yes * Community resources currently utilized None * Additional services required to return to the preadmission environment? No * Can the patient safely return to the preadmission environment? Yes * Has this patient been hospitalized within the prior 30 days at any hospital? No Last DP export: 09/05/19 8:46 pm Patient Name: ABE HESS Page 49543 at 1355 All edits/amendments must be made on the electronic document DICTATION DATE: 09/10/19 1354 SERVICE CAR OPERATOR: LEONARDO 09/10/19 1354 RPT#: [id number] DC DATE: STATUS: ADM IN [facility] [address] [place] [address] END OF REPORT
--- NOTE | 2019-09-10 14:45 | NUR ---
LYING IN BED,WITHOUT DISTRESS.DOOR OPEN
[2019-09-10 16:00] VITALS: BP 143/46
[2019-09-10 18:08] LABS: CALCULI - CA OXALATE MONOHYDR 10 % (()); CALCULI - COLOR Brown (()); CALCULI - MAGNESIUM AMMON PHOS 80 % (()); CALCULI - SIZE 10x6 mm (()); CALCULI - WEIGHT 305 mg (())
[2019-09-10 21:08] VITALS: BP 158/53
[2019-09-11] VITALS (13 sets, daily range): BP systolic 142–166; BP diastolic 46–61; Ht 152.4 cm; Wt 122.7 kg
[2019-09-11 05:41] LABS: BASOPHILS 0.2 % (0-2); EOSINOPHILS 2.9 % (0-7); HEMATOCRIT 30.3 % (36.0-48.0); HEMOGLOBIN 9.1 g/dL (12-16); IMMATURE GRANULOCYTES 2.5 % (0-5); LYMPHOCYTES 6.5 % (15-50); MCH 26.5 pg (26.0-34.0); MCV 88.3 fL (80.0-100.0); MEAN PLATELET VOLUME 11.7 fL (7.4-10.4); MONOCYTES 6.2 % (2-11); NEUTROPHILS 81.7 % (40-80); RBC 3.43 10x6/uL (4.00-5.40); RDW 16.4 % (11.5-14.5); WBC 17.4 10x3/uL (4.8-10.8)
[2019-09-11 05:50] LABS: PLATELET COUNT 282 10x3/uL (130-400)
[2019-09-11 06:18] LABS: ANION GAP 16.9 mmol/L (8-16); CALCIUM 7.8 mg/dL (8.5-10.1); CARBON DIOXIDE 21.1 mmol/L (21.0-32.0); VANCOMYCIN - RANDOM 15.4 ug/mL (10.0-20.0)
--- NOTE | 2019-09-11 18:45 | NUR ---
PATIENT IN BED WITH EYES CLOSED RESTING QUIETLY. IV INTACT. RAMIREZ INTACT. INCISIONS AND DEBRA DRAIN TO ABDOMEN CDI. PATIENT HAS NO COMPLAINTS OR SIGNS OF DISTRESS. CALL LIGHT WITHIN REACH.
[2019-09-12] VITALS: BP 177/60
--- NOTE | 2019-09-12 03:13 | NUR ---
RESTING IN BED RESPONDING LITTLE TO STAFF. F/C IN PLACE WITH URIN TO BAG. IV TO RIGHT UPPER ARM WITH D5 AT 10ML/HR. BATH GIVEN THIS SHIFT DRESSING CHANGED TO DEBRA DRAIN. DRESSING CHANGED TO RIGHT LOWER LEG. HEALS BRIGED DISCOLORATION TO HEALS LEFT ONE IN BLACK LOOKING RIGHT ONE IS DISCOLORED BUT NOT DARK.3 AND 4+ EDEMA TO ARMS AND LEGS.TRUNED Q2 FOR COMFORT.
[2019-09-12 04:00] VITALS: BP 154/64
[2019-09-12 04:58] LABS: BASOPHILS 0.4 % (0-2); HEMATOCRIT 31.5 % (36.0-48.0); HEMOGLOBIN 9.3 g/dL (12-16); IMMATURE GRANULOCYTES 2.3 % (0-5); LYMPHOCYTES 7.3 % (15-50); MCH 26.3 pg (26.0-34.0); MCHC 29.5 g/dL (31.0-37.0); MCV 89.2 fL (80.0-100.0); MONOCYTES 5.7 % (2-11); NEUTROPHILS 81.3 % (40-80); RBC 3.53 10x6/uL (4.00-5.40); RDW 16.4 % (11.5-14.5); WBC 15.7 10x3/uL (4.8-10.8)
[2019-09-12 05:09] LABS: PLATELET COUNT 342 10x3/uL (130-400)
[2019-09-12 05:30] LABS: ALBUMIN 1.8 g/dL (3.4-5.0); ANION GAP 17.2 mmol/L (8-16); BILIRUBIN - TOTAL 0.42 mg/dL (0.2-1.3); CALCIUM 7.8 mg/dL (8.5-10.1); CARBON DIOXIDE 20.2 mmol/L (21.0-32.0); CREATININE - SERUM 2.9 mg/dL (0.6-1.3); POTASSIUM - SERUM 4.4 mmol/L (3.5-5.1); PROTEIN - SERUM 6.1 g/dL (6.4-8.2); VANCOMYCIN - RANDOM 26.9 ug/mL (10.0-20.0)
--- NOTE | 2019-09-12 07:38 | NUR ---
RECEIVED REPORT FROM SEWER PIPE CLEANER. UPON ENTERING PT WAS SUPINE IN BED WITH EYES CLOSED, BREATHING EVEN AND UNLABORED. PT IS REPORTED TO BE LETHARGIC, CONFUSED AND GENERALLY UNREPSONSIVE. PT REPORTED TO HAVE DEMENTIA. 2L O2 VIA NASAL CANNULA, RIGHT UPPER ARM IV WITH D5 @ 10. PT HAS TELEMETRY, NPO. LAP CHOLY (3 LAP SITES), LIVE BIOPSY, DEBRA DRAIN, DRESSING TO THE RIGHT CALF, ON TELEMETRY. PT HAS A BED WEDGE AND TURNING SHEET. CURRENTLY TILTED TO THE LEFT. BED IN LOWEST POSITION, BED IN LOWEST POSITION, BED RAILS X3, CALL LIGHT WITHIN REACH. WILL CONTINUE TO MONITOR.
[2019-09-12 08:00] VITALS: BP 152/64
--- NOTE | 2019-09-12 11:06 | OP ---
PATIENT NAME: ABE HESS MEDICAL RECORD: [id number] :[birth year] LOCATION:D.[facility] [id number] ADMISSION DATE:09/01/19 SURGEON: THADDEUS INGRAM MD DATE OF OPERATION: 09/11/2019 PREOPERATIVE DIAGNOSIS: Symptomatic gallstones. POSTOPERATIVE DIAGNOSES: 1. Symptomatic gallstones. 2. Extensive intra-abdominal adhesions. 3. Hepatomegaly. PROCEDURES: 1. Laparoscopic cholecystectomy. 2. Intraoperative cholangiography without immediate surgeon interpretation. 3. A 14-gauge core needle liver biopsy. SURGEON: Thaddeus Ingram MD PRICING/SIGNAGE TEAM MEMBER: None. BLOOD LOSS: Minimal. ANESTHESIA: General. COMPLICATIONS: None. The risks, possible complications, and alternatives to the procedure were explained to the patient's family. They elected to proceed. OPERATIVE COURSE: The patient was conveyed to the operating room electively on 09/11/2019. General anesthesia was induced by anesthesia staff. A transverse incision was accomplished above the umbilicus. Sharp dissection was carried down to the level of the anterior fascia. Stay sutures of 0 Vicryl were placed on the side of the fascia and I incised through the linea alba. Peritoneal cavity was entered bluntly. A Suha trocar was introduced. CO2 insufflation was begun. Once sufficient pneumoperitoneum had been achieved, I noted extensive intra-abdominal adhesions in the epigastrium in the periumbilical area as well as in the right upper quadrant. I went about lysing these adhesions. This was through a 5-mm trocar in the left upper quadrant. During insertion of the Suha trocar, there appeared to have been no injury to the bowels, any intraperitoneal or retroperitoneal structures. Also during the adhesiolysis, there was no apparent injury to the bowels. I continued my adhesiolysis. The liver to the right of the falciform ligament was stuck up to the anterior abdominal wall and this had to be taken down very carefully. Indication for liver biopsy was hepatomegaly. Under laparoscopic guidance, I percutaneously accessed the right upper quadrant utilizing a 14-gauge core biopsy device. Cores were obtained over the convexity of the liver. The biopsy sites were made hemostatic with electrocautery. I then advanced a cholangiogram trocar. I punctured the fundus of the gallbladder. I aspirated bile. I then injected dye. Real time cholangiographic images were obtained. I then withdrew OPERATIVE REPORT [id number] ABE HESS the cholangiogram trocar. The gallbladder was grasped and retracted cephalad. The infundibulum was grasped and retracted laterally. Blunt dissection was begun in the triangle of Calot. One cystic artery and one cystic duct were identified. These were clipped multiply and divided between clips. The gallbladder was placed within a bag retrieval device and was withdrawn through the supraumbilical fascial defect. After the adhesiolysis, two more 5-mm trocars were inserted. One was inserted in the epigastrium and the other was inserted far laterally in the right upper quadrant. The Suha trocar was replaced and the abdomen reinsufflated. I changed out the left upper quadrant trocar for a 12-mm trocar. I then utilized the large suction cannula to suck out as many stones as I could identify. The 12-mm trocar in the left upper quadrant was removed and the fascia was closed with a 0 Vicryl suture utilizing the laparoscopic suture passer. At the epigastric trocar site, I advanced a 10-Rwandan round fully fluted closed suction drain. This was sutured to skin with 2-0 nylon. The fascia at the supraumbilical site was closed with a horizontal mattress 0 Vicryl sutures. The skin at all the operative sites was closed with interrupted intracuticular 3-0 Vicryls. Sterile dressings were applied. The patient was then extubated and conveyed to post-anesthesia care unit where she was in stable condition. She will be dismissed back to the floor. TRANSINT:[id number] Voice Confirmation ID: [id number] DOCUMENT ID: [id number] THADDEUS INGRAM MD at 1106 CC: [id number] DICTATION DATE: 09/11/19 1451 BOBBIN WASHER: 09/11/192008 ADM IN [facility] [address] [place] [id number]
--- NOTE | 2019-09-12 11:09 | NUR ---
HUNG IV ANTIBIOTICS. PT IS VERY LETHARGIC, MOSTLY UNRESPONSIVE AND UNABLE TO COMMUNICATE. THEREFORE PT IS NOT ABLE TO SWALLOW PILLS AT THIS TIME. PT IS LAYING SUPINE WITH EYES OPEN, BREATHING IS SHALLOW, EVEN AND UNLABORED. ASSESSMENT PERFORMED AT THIS TIME. WILL CONTINUE TO CLOSELY MONITOR.
[2019-09-12 12:00] VITALS: BP 154/57
--- NOTE | 2019-09-12 12:34 | MORECARE ---
CASE MANAGEMENT DISCHARGE SUMMARY PATIENT: ABE HESS UNIT: [id number] ADM DATE: 09/01/19 AGE: 74 : 45 SEX: F ROOM/BED: D.[facility] AUTHOR: CYNTHIA,DOC PHYSICIAN: REFERRING PHYSICIAN: MARIA ELENA CURRY MD DATE OF SERVICE: 09/12/19 Discharge Plan Patient Name: ABE HESS Facility: [facility]:[place] : 1945 Planned Disposition: Nursing Facility [facility] Cert Anticipated Discharge Date: Discharge Date: Expected LOS: Initial Reviewer: [email or web address] Initial Review Date: 09/02/2019 Generated: 09/12/19 1:33 pm Comments DCP- Discharge Planning Updated by [email or web address]: Elena Sanchez on 09/12/19 11:[address] Patient Name: ABE HESS Admission Status: Elective Accout number: [id number] Admission Date: 09-01-2019 : 1945 Admission Diagnosis:CALCULUS OF URETER Attending: RANDY CURRY Current LOS: 11 Anticipated DC Date: Planned Disposition: Nursing Facility [facility] Cert Primary Insurance: MEDICARE IP PART B ONLY Discharge Planning Comments: FAXED UPDATE TO [facility] AT [phone]. Surgical Dental Assistant: Elena Sanchez DCP- Discharge Planning Updated by [email or web address]: Elena Sanchez on 09/10/19 12:[address] Patient Name: ABE HESS Admission Status: Elective Accout number: [id number] Admission Date: 09-01-2019 : 1945 Admission Diagnosis:CALCULUS OF URETER Attending: RANDY CURRY Current LOS: 9 Anticipated DC Date: Planned Disposition: Nursing Facility [facility] Cert Primary Insurance: MEDICARE IP PART B ONLY Discharge Planning Comments: THERE IS A DNR ON THE CHART FROM 2012. PROVIDER WANTS TO KNOW IF THE DNR IS STILL THE CASE, IF WE NEED TO BE AGGRESIVE WITH CARE OR DNR IS THE WISHES. I CALLED AND SPOKE TO FAMILY MEMBER ALTAF LEE WHICH IS SISTER IN LAW, TO DISCUSS DNR STATUS AND PLAN. SHE STATES I WOULD NEED TO TALK TO CITLALI UGARTE AT [phone]. I TRIED CALLING MS UGARTE AND LEFT A VOICE MAIL TO CALL ME. SISTER IN LAW STATES WOULD LIKE HER TO GO BACK TO [facility] WITH COMFORT CARE/ HOSPICE BUT MS TORITO IS POA. CM WILL FOLLOW AND ASSIST NEEDED. Surgical Dental Assistant: Elena Sanchez DCP- Discharge Planning Updated by [id number]: Xiao Castro on 09/05/19 8:[address] Patient Name: ABE HESS Admission Status: Elective Accout number: [id number] Admission Date: 09-01-2019 : 1945 Admission Diagnosis:CALCULUS OF URETER Attending: RANDY CURRY Current LOS: 4 Anticipated DC Date: Planned Disposition: Nursing Facility [facility] Primary Insurance: MEDICARE IP PART B ONLY Discharge Planning Comments: PATIENT IS A RESIDENT AT [facility] [phone]. C[facility]IC COMPLETED PLANS TO RETURN THERE UPON DISCHARGE. CM FAXED UPDATE TO FACILITY. CM WILL CONTINUE TO FOLLOW AND ASSIST NEEDED WITH DISCHARGE PLANNING / NEEDS. Surgical Dental Assistant: Xiao Castro DCPIA - Discharge Planning Initial Assessment Updated by [id number]: Xiao Castro on 09/05/19 9:38 pm * Is the patient Alert and Oriented? Yes * PCP [facility] * Pharmacy [facility] * Preadmission Environment Perinatal Director [facility] * Facility Name [facility] * List name and contact numbers for known caregivers / representatives who currently or will assist patient after discharge: ROSA SOLITARIO - [phone] MOISÉS RENALDO [facility] - [phone] * Verbal permission to speak to the caregivers and representatives has been obtained from the patient. Yes * Community resources currently utilized None * Additional services required to return to the preadmission environment? No * Can the patient safely return to the preadmission environment? Yes * Has this patient been hospitalized within the prior 30 days at any hospital? No Last DP export: 09/10/19 12:55 p Patient Name: ABE HESS Page 14494 at 1234 All edits/amendments must be made on the electronic document DICTATION DATE: 09/12/19 1234 CONTRACTS ADVISOR: LEONARDO 09/12/19 1234 RPT#: [id number] DC DATE: STATUS: ADM IN [facility] [address] [place] [address] END OF REPORT
--- NOTE | 2019-09-12 12:59 | NUR ---
SPOKE WITH CIRO SOLIS. AGREES WITH SURGERIES DISCHARGE. SUGGESTS SPEAKING TO FAMILY ABOUT COMFORT CARE UPON RETURNING TO [place]. TOLD CASE MANAGEMENT, SHE AGREED TO CALL FAMILY.
--- NOTE | 2019-09-12 14:39 | NUR ---
I have reviewed this patient and I concur with the Shift Assessment completed by the Licensed Practical Nurse today this shift.
--- NOTE | 2019-09-12 15:08 | NUR ---
ADMINISTERED EYE DROPS IN EACH EYE. PT IS STILL LETHARGIC, NOT VERY RESPONSIVE AND UNABLE TO COMMUNICATE. THEREFORE THE PATIETN IS STILL UNABLE TO TAKE MEDICATIONS BY MOUTH. TURNED PT IN BED WITH AIDE. WILL CONTINUE TO MONITOR.
--- NOTE | 2019-09-12 15:17 | MORECARE ---
CASE MANAGEMENT DISCHARGE SUMMARY PATIENT: ABE HESS UNIT: [id number] ADM DATE: 09/01/19 AGE: 74 : 45 SEX: F ROOM/BED: D.[facility] AUTHOR: CYNTHIA,DOC PHYSICIAN: REFERRING PHYSICIAN: MARIA ELENA CURRY MD DATE OF SERVICE: 09/12/19 Discharge Plan Patient Name: ABE HESS Facility: [facility]:[place] : 1945 Planned Disposition: Nursing Facility [facility] Cert Anticipated Discharge Date: Discharge Date: Expected LOS: Initial Reviewer: [id number] Initial Review Date: 09/02/2019 Generated: 09/12/19 4:16 pm Comments DCP- Discharge Planning Updated by [id number]: Elena Sanchez on 09/12/19 2:[address] Patient Name: ABE HESS Admission Status: Elective Accout number: [id number] Admission Date: 09-01-2019 : 1945 Admission Diagnosis:CALCULUS OF URETER Attending: RANDY CURRY Current LOS: 11 Anticipated DC Date: Planned Disposition: Nursing Facility [facility] Cert Primary Insurance: MEDICARE IP PART B ONLY Discharge Planning Comments: SAVANNAH FROM [facility] CALLED AND THEY WILL NOT ACCEPT PATIENT BACK UNTIL SUNDAY. Tax Services Professional: Elena Sanchez DCP- Discharge Planning Updated by [email or web address]: Elena Sanchez on 09/12/19 11:[address] Patient Name: ABE HESS Admission Status: Elective Accout number: [id number] Admission Date: 09-01-2019 : 1945 Admission Diagnosis:CALCULUS OF URETER Attending: RANDY CURRY Current LOS: 11 Anticipated DC Date: Planned Disposition: Nursing Facility [facility] Cert Primary Insurance: MEDICARE IP PART B ONLY Discharge Planning Comments: FAXED UPDATE TO [facility] AT [phone]. Tax Services Professional: Elena Sanchez DCP- Discharge Planning Updated by [email or web address]: Elena Sanchez on 09/10/19 12:[address] Patient Name: ABE HESS Admission Status: Elective Accout number: [id number] Admission Date: 09-01-2019 : 1945 Admission Diagnosis:CALCULUS OF URETER Attending: RANDY CURRY Current LOS: 9 Anticipated DC Date: Planned Disposition: Nursing Facility [facility] Cert Primary Insurance: MEDICARE IP PART B ONLY Discharge Planning Comments: THERE IS A DNR ON THE CHART FROM 2012. PROVIDER WANTS TO KNOW IF THE DNR IS STILL THE CASE, IF WE NEED TO BE AGGRESIVE WITH CARE OR DNR IS THE WISHES. I CALLED AND SPOKE TO FAMILY MEMBER ALTAF LEE WHICH IS SISTER IN LAW, TO DISCUSS DNR STATUS AND PLAN. SHE STATES I WOULD NEED TO TALK TO CITLALI MUSHTAQYamile UGARTE AT [phone]. I TRIED CALLING MS UGARTE AND LEFT A VOICE MAIL TO CALL ME. SISTER IN LAW STATES WOULD LIKE HER TO GO BACK TO [facility] WITH COMFORT CARE/ HOSPICE BUT MS UGARTE IS POA. CM WILL FOLLOW AND ASSIST NEEDED. Tax Services Professional: Elena Sanchez DCP- Discharge Planning Updated by [id number]: Xiao Castro on 09/05/19 8:[address] Patient Name: ABE HESS Admission Status: Elective Accout number: [id number] Admission Date: 09-01-2019 : 1945 Admission Diagnosis:CALCULUS OF URETER Attending: RANDY CURRY Current LOS: 4 Anticipated DC Date: Planned Disposition: Nursing Facility [facility] Cert Primary Insurance: MEDICARE IP PART B ONLY Discharge Planning Comments: PATIENT IS A RESIDENT AT [facility] [phone]. [facility] COMPLETED PLANS TO RETURN THERE UPON DISCHARGE. CM FAXED UPDATE TO FACILITY. CM WILL CONTINUE TO FOLLOW AND ASSIST NEEDED WITH DISCHARGE PLANNING / NEEDS. Tax Services Professional: Xiao Castro DCPIA - Discharge Planning Initial Assessment Updated by [email or web address]: Xiao Castro on 09/05/19 9:38 pm * Is the patient Alert and Oriented? Yes * PCP [facility] * Pharmacy [facility] * Preadmission Environment [facility] * Facility Name [facility] * List name and contact numbers for known caregivers / representatives who currently or will assist patient after discharge: ROSA SOLITARIO - [phone] MOISÉS MACARIO Edgar LOVE - [phone] * Verbal permission to speak to the caregivers and representatives has been obtained from the patient. Yes * Community resources currently utilized None * Additional services required to return to the preadmission environment? No * Can the patient safely return to the preadmission environment? Yes * Has this patient been hospitalized within the prior 30 days at any hospital? No Last DP export: 09/12/19 11:34 a Patient Name: ABE HESS Page 53706 at 1517 All edits/amendments must be made on the electronic document DICTATION DATE: 09/12/191515 AQUARIUM TANK ATTENDANT: LEONARDO 09/12/191515 RPT#: [id number] DC DATE: STATUS: ADM IN [facility] [address] [place] [address] END OF REPORT
[2019-09-12 16:00] VITALS: BP 144/59
--- NOTE | 2019-09-12 17:40 | NUR ---
PT IN BED SUPINE, STATUS HAS NO CHANGED FROM PREVIOUS NOTE. WILL CONTINUE TO MONITOR.
--- NOTE | 2019-09-12 18:24 | NUR ---
PULLED PT DEBRA TUBE FROM ABDOMEN. 25 ML OF DRAINAGE IN DRAIN BULB. TOLERATED WELL. COVERED INCISION WITH 4X4'S AND PRESSURE TAPE. PT RESTING COMFORTABLY IN BED. WILL CONTINUE TO MONITOR.
[2019-09-12 20:00] VITALS: BP 136/55
[2019-09-13] VITALS: BP 146/62
[2019-09-13 04:00] VITALS: BP 108/45
[2019-09-13 07:12] LABS: ALBUMIN 1.8 g/dL (3.4-5.0); BILIRUBIN - TOTAL 0.32 mg/dL (0.2-1.3); CARBON DIOXIDE 18.7 mmol/L (21.0-32.0); CREATININE - SERUM 3.1 mg/dL (0.6-1.3); PROTEIN - SERUM 5.4 g/dL (6.4-8.2); VANCOMYCIN - RANDOM 19.3 ug/mL (10.0-20.0)
[2019-09-13 07:13] LABS: ANION GAP 20.3 mmol/L (8-16)
[2019-09-13 07:23] LABS: HEMATOCRIT 33.5 % (36.0-48.0); HEMOGLOBIN 9.7 g/dL (12-16); MCV 93.3 fL (80.0-100.0); MEAN PLATELET VOLUME 12.2 fL (7.4-10.4); PLATELET COUNT 352 10x3/uL (130-400); RBC 3.59 10x6/uL (4.00-5.40); RDW 17.1 % (11.5-14.5); WBC 20.8 10x3/uL (4.8-10.8)
[2019-09-13 07:50] LABS: LYMPHOCYTES 8 % (15-50); NEUTROPHILS 92 % (40-80); PLATELET ESTIMATE NORMAL
--- NOTE | 2019-09-13 08:27 | NUR ---
PATIENT NONRESPONSIVE WITH DYSPNEA NOTED WITH RALES AND RHONCHI NOTED WITH O2 2. N/C WITH O2 SAT. 90%. INCREASED TO 3L. Lori SNOW APN AND DR. HERBERT NOTIFIED OF LAB AND CONDITION WITH NEW ORDERS NOTED. CHANGED POSITION FOR COMFORT WITH CONTINUED TELEMETRY AND CONTINUED DNR STATUS.
[2019-09-13 08:28] VITALS: BP 117/38
--- NOTE | 2019-09-13 11:30 | NUR ---
PATIENT REPOSITIONED FOR COMFORT WITH POA NOTIFIED OF CONDITION AND ABLILITY TO COME VISIT. STATED WOULD NOTIFY HADOOP DEVELOPER AND FAMILY.
[2019-09-13 12:24] VITALS: BP 101/57
--- NOTE | 2019-09-13 13:27 | MORECARE ---
CASE MANAGEMENT DISCHARGE SUMMARY PATIENT: ABE HESS UNIT: [id number] ADM DATE: 09/01/19 AGE: 74 : 45 SEX: F ROOM/BED: D[facility] AUTHOR: CYNTHIA,DOC PHYSICIAN: REFERRING PHYSICIAN: MARIA ELENA CURRY MD DATE OF SERVICE: 09/13/19 Discharge Plan Patient Name: ABE HESS Facility: [facility]:[place] : 1945 Planned Disposition: Nursing Facility [facility] Cert Anticipated Discharge Date: Discharge Date: Expected LOS: Initial Reviewer: [email or web address] Initial Review Date: 09/02/2019 Generated: 09/13/19 2:26 pm Comments DCP- Discharge Planning Updated by [id number]: Elena Sanchez on 09/12/19 2:[address] Patient Name: ABE HESS Admission Status: Elective Accout number: [id number] Admission Date: 09-01-2019 : 1945 Admission Diagnosis:CALCULUS OF URETER Attending: RANDY CURRY Current LOS: 11 Anticipated DC Date: Planned Disposition: Nursing Facility [facility] Cert Primary Insurance: MEDICARE IP PART B ONLY Discharge Planning Comments: SAVANNAH FROM [facility] CALLED AND THEY WILL NOT ACCEPT PATIENT BACK UNTIL SUNDAY. Disability Insurance Hearing Officer: Elena Sanchez DCP- Discharge Planning Updated by [id number]: Elena Sanchez on 09/12/19 11:[address] Patient Name: ABE HESS Admission Status: Elective Accout number: [id number] Admission Date: 09-01-2019 : 1945 Admission Diagnosis:CALCULUS OF URETER Attending: RANDY CURRY Current LOS: 11 Anticipated DC Date: Planned Disposition: Nursing Facility [facility] Cert Primary Insurance: MEDICARE IP PART B ONLY Discharge Planning Comments: FAXED UPDATE TO [facility] AT [phone]. Disability Insurance Hearing Officer: Elena Sanchez DCP- Discharge Planning Updated by [email or web address]: Elena Sanchez on 09/10/19 12:[address] Patient Name: ABE HESS Admission Status: Elective Accout number: [id number] Admission Date: 09-01-2019 : 1945 Admission Diagnosis:CALCULUS OF URETER Attending: RANDY CURRY Current LOS: 9 Anticipated DC Date: Planned Disposition: Nursing Facility [facility] Cert Primary Insurance: MEDICARE IP PART B ONLY Discharge Planning Comments: THERE IS A DNR ON THE CHART FROM 2012. PROVIDER WANTS TO KNOW IF THE DNR IS STILL THE CASE, IF WE NEED TO BE AGGRESIVE WITH CARE OR DNR IS THE WISHES. I CALLED AND SPOKE TO FAMILY MEMBER ALTAF LEE WHICH IS SISTER IN LAW, TO DISCUSS DNR STATUS AND PLAN. SHE STATES I WOULD NEED TO TALK TO CITLALI MUSHTAQYamile UGARTE AT [phone]. I TRIED CALLING MS UGARTE AND LEFT A VOICE MAIL TO CALL ME. SISTER IN LAW STATES WOULD LIKE HER TO GO BACK TO [facility] WITH COMFORT CARE/ HOSPICE BUT MS UGARTE IS POA. CM WILL FOLLOW AND ASSIST NEEDED. Disability Insurance Hearing Officer: Elena Sanchez DCP- Discharge Planning Updated by [id number]: Xiao Castro on 09/05/19 8:[address] Patient Name: ABE HESS Admission Status: Elective Accout number: [id number] Admission Date: 09-01-2019 : 1945 Admission Diagnosis:CALCULUS OF URETER Attending: RANDY CURRY Current LOS: 4 Anticipated DC Date: Planned Disposition: Nursing Facility [facility] Cert Primary Insurance: MEDICARE IP PART B ONLY Discharge Planning Comments: PATIENT IS A RESIDENT AT [facility] [phone]. CEDRIC COMPLETED PLANS TO RETURN THERE UPON DISCHARGE. CM FAXED UPDATE TO FACILITY. CM WILL CONTINUE TO FOLLOW AND ASSIST NEEDED WITH DISCHARGE PLANNING / NEEDS. Disability Insurance Hearing Officer: Xiao Castro DCPIA - Discharge Planning Initial Assessment Updated by [email or web address]: Xiao Castro on 09/05/19 9:38 pm * Is the patient Alert and Oriented? Yes * PCP [facility] * Pharmacy [facility] * Preadmission Environment Grout Machine Operator Long Term * Facility Name [facility] * List name and contact numbers for known caregivers / representatives who currently or will assist patient after discharge: ROSA SOLITARIO - [phone] MOISÉS MACARIO Edgar LOVE - [phone] * Verbal permission to speak to the caregivers and representatives has been obtained from the patient. Yes * Community resources currently utilized None * Additional services required to return to the preadmission environment? No * Can the patient safely return to the preadmission environment? Yes * Has this patient been hospitalized within the prior 30 days at any hospital? No External Providers External Provider: [facility] Next Contact Date: Service Request Date: Service Type: Resolution: Reviewer: Comments: Last DP export: 09/12/19 2:17 p Patient Name: ABE HESS Page 65618 at 1327 All edits/amendments must be made on the electronic document DICTATION DATE: 09/13/19 1326 CONTENT COORDINATOR: LEONARDO 09/13/19 1326 RPT#: [id number] DC DATE: STATUS: ADM IN [facility] [address] [place] [address] END OF REPORT
--- NOTE | 2019-09-13 13:46 | MORECARE ---
CASE MANAGEMENT DISCHARGE SUMMARY PATIENT: ABE HESS UNIT: [id number] ADM DATE: 09/01/19 AGE: 74 : 45 SEX: F ROOM/BED: D[facility] AUTHOR: CYNTHIA,DOC PHYSICIAN: REFERRING PHYSICIAN: MARIA ELENA CURRY MD DATE OF SERVICE: 09/13/19 Discharge Plan Patient Name: ABE HESS Facility: [facility]:[place] : 1945 Planned Disposition: Nursing Facility [facility] Cert Anticipated Discharge Date: Discharge Date: Expected LOS: Initial Reviewer: [email or web address] Initial Review Date: 09/02/2019 Generated: 09/13/19 2:45 pm Comments DCP- Discharge Planning Updated by [id number]: Amanda Doshi on 09/13/19 12:[address] CM received order for Hospice consult. I spoke with DEVORA in the room and she signed CEDRIC for [facility]. I called the POA and informed her and consult called to [facility] after Kelly GODWIN, agreed. I spoke with Bryan, with [facility] and clinical and order faxed. CM will continue to follow and assist with discharge planning/needs. DCP- Discharge Planning Updated by [id number]: Elena Sanchez on 09/12/19 2:[address] Patient Name: ABE HESS Admission Status: Elective Accout number: [id number] Admission Date: 09-01-2019 : 1945 Admission Diagnosis:CALCULUS OF URETER Attending: RANDY CURRY Current LOS: 11 Anticipated DC Date: Planned Disposition: Nursing Facility [facility] Cert Primary Insurance: MEDICARE IP PART B ONLY Discharge Planning Comments: SAVANNAH FROM [facility] CALLED AND THEY WILL NOT ACCEPT PATIENT BACK UNTIL SUNDAY. Lead Software Test Engineer: Elena Sanchez DCP- Discharge Planning Updated by [id number]: Elena Sanchez on 09/12/19 11:[address] Patient Name: ABE EHSS Admission Status: Elective Accout number: [id number] Admission Date: 09-01-2019 : 1945 Admission Diagnosis:CALCULUS OF URETER Attending: RANDY CURRY Current LOS: 11 Anticipated DC Date: Planned Disposition: Nursing Facility [facility] Cert Primary Insurance: MEDICARE IP PART B ONLY Discharge Planning Comments: FAXED UPDATE TO [facility] AT [phone]. Lead Software Test Engineer: Elenajesus Sanchez DCP- Discharge Planning Updated by [email or web address]: Elena Sanchez on 09/10/19 12:[address] Patient Name: BAE HESS Admission Status: Elective Accout number: [id number] Admission Date: 09-01-2019 : 1945 Admission Diagnosis:CALCULUS OF URETER Attending: RANDY CURRY Current LOS: 9 Anticipated DC Date: Planned Disposition: Nursing Facility [facility] Primary Insurance: MEDICARE IP PART B ONLY Discharge Planning Comments: THERE IS A DNR ON THE CHART FROM 2013. PROVIDER WANTS TO KNOW IF THE DNR IS STILL THE CASE, IF WE NEED TO BE AGGRESIVE WITH CARE OR DNR IS THE WISHES. I CALLED AND SPOKE TO FAMILY MEMBER ALTAF LEE WHICH IS SISTER IN LAW, TO DISCUSS DNR STATUS AND PLAN. SHE STATES I WOULD NEED TO TALK TO CITLALI LANDIN TORITO AT [phone]. I TRIED CALLING MS UGARTE AND LEFT A VOICE MAIL TO CALL ME. SISTER IN LAW STATES WOULD LIKE HER TO GO BACK TO [facility] WITH COMFORT CARE/ HOSPICE BUT MS UGARTE IS POA. CM WILL FOLLOW AND ASSIST NEEDED. Lead Software Test Engineer: Elena Sanchez DCP- Discharge Planning Updated by [email or web address]: Xiao Castro on 09/05/19 8:[address] Patient Name: ABE HESS Admission Status: Elective Accout number: [id number] Admission Date: 09-01-2019 : 1945 Admission Diagnosis:CALCULUS OF URETER Attending: RANDY CURRY Current LOS: 4 Anticipated DC Date: Planned Disposition: Nursing Facility [facility] Primary Insurance: MEDICARE IP PART B ONLY Discharge Planning Comments: PATIENT IS A RESIDENT AT [facility] [phone]. CEDRIC COMPLETED PLANS TO RETURN THERE UPON DISCHARGE. CM FAXED UPDATE TO FACILITY. CM WILL CONTINUE TO FOLLOW AND ASSIST NEEDED WITH DISCHARGE PLANNING / NEEDS. Lead Software Test Engineer: Xiao Castro DCPIA - Discharge Planning Initial Assessment Updated by [email or web address]: Xiao Castro on 09/05/19 9:38 pm * Is the patient Alert and Oriented? Yes * PCP [facility] * [facility]acy [facility] * Preadmission Environment Alf Long Term * Facility Name [facility] * List name and contact numbers for known caregivers / representatives who currently or will assist patient after discharge: ROSA SOLITARIO - [phone] MOISÉS MACARIO KATE - [phone] * Verbal permission to speak to the caregivers and representatives has been obtained from the patient. Yes * Community resources currently utilized None * Additional services required to return to the preadmission environment? No * Can the patient safely return to the preadmission environment? Yes * Has this patient been hospitalized within the prior 30 days at any hospital? No Coverage Notice Reviewer: [id number] Edgar Doshi Notice Issued Date-Time: 09/13/2019 13:40 Notice Type: Patient Choice Letter Notice Delivered To: Family Member Relationship to Patient: Sister in Law National Van Truck Driver Name: Laura Lee Delivery Method: HAND - Hand Delivered Nini Days: Prior Verbal Notification: Recipient Understood Notice: Yes Recipient Signature: Yes Med Rec Note Co-signed by Attending: Coverage Notice Comment: cedric for [facility] Last DP export: 09/13/19 12:27 p Patient Name: ABE HESS Page 86707 at 1346 All edits/amendments must be made on the electronic document DICTATION DATE: 09/13/19 1345 TRAY CASTING MACHINE OPERATOR: LEONARDO 09/13/19 1345 RPT#: [id number] DC DATE: STATUS: ADM IN [facility] [address] [place] [address] END OF REPORT
[2019-09-13 16:07] VITALS: BP 91/32
--- NOTE | 2019-09-13 16:40 | NUR ---
PATIENT EXPERIENCED ASYSTOLE AND ABSCENCE OF BREATHING WHILE IN ROOM WHILE ADMINISTERING CARE AND ATROPINE GTTS. EMERGENCY ROOM DOCTOR NOTIFIED
--- NOTE | 2019-09-13 17:00 | NUR ---
PHYSICIAN HERE TO PRONOUNCE WITH [facility] NOTIFIED. IZA NOTEIFIED WELL. POA NOTIFIED AND APPRECIATIVE OF CARE GIVEN.
--- NOTE | 2019-09-13 19:32 | NUR ---
HOME INCIDENT RESPONSE ENGINEER HERE TO RECEIVE BODY WITH RELASE OF BODY RECORD SIGNED.
--- NOTE | 2019-09-15 08:25 | MORECARE ---
CASE MANAGEMENT DISCHARGE SUMMARY PATIENT: ABE HESS UNIT: [id number] ADM DATE: 09/01/19 AGE: 74 : 45 SEX: F ROOM/BED: D.2231 AUTHOR: CYNTHIA,DOC PHYSICIAN: REFERRING PHYSICIAN: MARIA ELENA CURRY MD DATE OF SERVICE: 09/15/19 Discharge Plan Patient Name: ABE HESS Facility: [facility]:[place] : 1945 Planned Disposition: Nursing Facility [facility] Cert Anticipated Discharge Date: Discharge Date: 09/13/2019 Expected LOS: Initial Reviewer: [email or web address] Initial Review Date: 09/02/2019 Generated: 09/15/19 9:24 am Comments DCP- Discharge Planning Updated by [email or web address]: Amanda Doshi on 09/13/19 12:[address] CM received order for Hospice consult. I spoke with DEVORA in the room and she signed CEDRIC for [facility]. I called the POA and informed her and consult called to [facility] after Kelly GODWIN, agreed. I spoke with Bryan, with [facility] and clinical and order faxed. CM will continue to follow and assist with discharge planning/needs. DCP- Discharge Planning Updated by [email or web address]: Elena Sanchez on 09/12/19 2:[address] Patient Name: ABE HESS Admission Status: Elective Accout number: [id number] Admission Date: 09-01-2019 : 1945 Admission Diagnosis:CALCULUS OF URETER Attending: RANDY CURRY Current LOS: 11 Anticipated DC Date: Planned Disposition: Nursing Facility [facility] Cert Primary Insurance: MEDICARE IP PART B ONLY Discharge Planning Comments: SAVANNAH FROM [facility] CALLED AND THEY WILL NOT ACCEPT PATIENT BACK UNTIL SUNDAY. Lead Laying And Gluing Machine Operator: Elena Sanchez DCP- Discharge Planning Updated by [id number]: Elena Sanchez on 09/12/19 11:[address] Patient Name: ABE HESS Admission Status: Elective Accout number: [id number] Admission Date: 09-01-2019 : 1945 Admission Diagnosis:CALCULUS OF URETER Attending: RANDY CURRY Current LOS: 11 Anticipated DC Date: Planned Disposition: Nursing Facility [facility] Cert Primary Insurance: MEDICARE IP PART B ONLY Discharge Planning Comments: FAXED UPDATE TO [facility] AT [phone]. Lead Laying And Gluing Machine Operator: Elena Sanchez DCP- Discharge Planning Updated by [id number]: Elena Laura on 09/10/19 12:[address] Patient Name: ABE HESS Admission Status: Elective Accout number: [id number] Admission Date: 09-01-2019 : 1945 Admission Diagnosis:CALCULUS OF URETER Attending: RANDY CURRY Current LOS: 9 Anticipated DC Date: Planned Disposition: Nursing Facility [facility] Cert Primary Insurance: MEDICARE IP PART B ONLY Discharge Planning Comments: THERE IS A DNR ON THE CHART FROM 2013. PROVIDER WANTS TO KNOW IF THE DNR IS STILL THE CASE, IF WE NEED TO BE AGGRESIVE WITH CARE OR DNR IS THE WISHES. I CALLED AND SPOKE TO FAMILY MEMBER ALTAF LEE WHICH IS SISTER IN LAW, TO DISCUSS DNR STATUS AND PLAN. SHE STATES I WOULD NEED TO TALK TO CITLALI UGARTE AT [phone]. I TRIED CALLING MS UGARTE AND LEFT A VOICE MAIL TO CALL ME. SISTER IN LAW STATES WOULD LIKE HER TO GO BACK TO [facility] WITH COMFORT CARE/ HOSPICE BUT MS UGARTE IS POA. CM WILL FOLLOW AND ASSIST NEEDED. Lead Laying And Gluing Machine Operator: Elena Sanchez DCP- Discharge Planning Updated by [id number]: Xiao Castro on 09/05/19 8:[address] Patient Name: ABE HESS Admission Status: Elective Accout number: [id number] Admission Date: 09-01-2019 : 1945 Admission Diagnosis:CALCULUS OF URETER Attending: RANDY CURRY Current LOS: 4 Anticipated DC Date: Planned Disposition: Nursing Facility [facility] Primary Insurance: MEDICARE IP PART B ONLY Discharge Planning Comments: PATIENT IS A RESIDENT AT [facility] [phone]. CEDRIC COMPLETED PLANS TO RETURN THERE UPON DISCHARGE. CM FAXED UPDATE TO FACILITY. CM WILL CONTINUE TO FOLLOW AND ASSIST NEEDED WITH DISCHARGE PLANNING / NEEDS. Lead Laying And Gluing Machine Operator: Xiao Castro DCPIA - Discharge Planning Initial Assessment Updated by [id number]: Xiao Castro on 09/05/19 9:38 pm * Is the patient Alert and Oriented? Yes * PCP [facility] * [facility]acy [facility] * Preadmission Environment [facility] * Facility Name [facility] * List name and contact numbers for known caregivers / representatives who currently or will assist patient after discharge: ROSA SOLITARIO - [phone] MOISÉS MACARIO [facility] [phone] * Verbal permission to speak to the caregivers and representatives has been obtained from the patient. Yes * Community resources currently utilized None * Additional services required to return to the preadmission environment? No * Can the patient safely return to the preadmission environment? Yes * Has this patient been hospitalized within the prior 30 days at any hospital? No Coverage Notice Reviewer: [id number] Edgar Doshi Notice Issued Date-Time: 09/13/2019 13:40 Notice Type: Patient Choice Letter Notice Delivered To: Family Member Relationship to Patient: Sister in Law Director Of Collections Name: Laura Lee Delivery Method: HAND - Hand Delivered Nini Days: Prior Verbal Notification: Recipient Understood Notice: Yes Recipient Signature: Yes Med Rec Note Co-signed by Attending: Coverage Notice Comment: cedric for [facility] Last DP export: 09/13/19 12:46 p Patient Name: ABE HESS Page 88969 at 0825 All edits/amendments must be made on the electronic document DICTATION DATE: 09/15/19823 CHIEF ENGINEER DRILLING AND RECOVERY: LEONARDO 09/15/19823 RPT#: [id number] DC DATE:09/13/19 STATUS: DIS IN [facility] [address] [place] [address] END OF REPORT
== END 2019-09-13 19:32 | DRG 853 ==
LOC: D.M2 20:57 → D.MS 23:00 → D.ICU 23:00 → D.M2 23:00 → D.ICU 09-02 12:29 → D.MS 09-08 11:16
PROVIDERS: Family Medicine; Internal Medicine Nephrology; ADMIT Urology; ATTEND Urology
PROC: 0T778DZ Dilation of Left Ureter with Intraluminal Device, Via Natural or Artificial Opening Endoscopic (ICD-10-PCS; 2019-09-02)
PROC: 0TC78ZZ Extirpation of Matter from Left Ureter, Via Natural or Artificial Opening Endoscopic (ICD-10-PCS; principal; 2019-09-02 11:30)
PROC: 0FT44ZZ Resection of Gallbladder, Percutaneous Endoscopic Approach (ICD-10-PCS; 2019-09-11)
PROC: 0FB04ZX Excision of Liver, Percutaneous Endoscopic Approach, Diagnostic (ICD-10-PCS; 2019-09-11)
PROC: BF101ZZ Fluoroscopy of Bile Ducts using Low Osmolar Contrast (ICD-10-PCS; 2019-09-11)
DX: A41.9 Sepsis, unspecified organism (principal); G92 Toxic encephalopathy; I21.A1 Myocardial infarction type 2; J96.01 Acute respiratory failure with hypoxia; R40.2124 Coma scale, eyes open, to pain, 24 hours or more after hospital admission; R40.2314 Coma scale, best motor response, none, 24 hours or more after hospital admission; R40.2214 Coma scale, best verbal response, none, 24 hours or more after hospital admission; N20.1 Calculus of ureter; Q60.0 Renal agenesis, unilateral; J44.1 Chronic obstructive pulmonary disease with (acute) exacerbation; N17.9 Acute kidney failure, unspecified; I69.351 Hemiplegia and hemiparesis following cerebral infarction affecting right dominant side; D68.9 Coagulation defect, unspecified; Z66 Do not resuscitate; I48.91 Unspecified atrial fibrillation; K21.9 Gastro-esophageal reflux disease without esophagitis; I69.320 Aphasia following cerebral infarction; D50.9 Iron deficiency anemia, unspecified; K80.80 Other cholelithiasis without obstruction; R16.0 Hepatomegaly, not elsewhere classified